=== PATIENT | female | born 1995 | race Caucasian/White ===

== ENCOUNTER 2018-09-03 18:08 | Emergency (ER) | payer OTHER ==
[~2018-09-03] VITALS: Ht 165.1 cm; Wt 129.3 kg
[2018-09-03 18:24] VITALS: BP 139/67
--- NOTE | 2018-09-03 19:23 | NUR ---
pt ambulated to bed 9.
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
--- NOTE | 2018-09-03 21:34 | NUR ---
PATIENT RESTING AT THIS TIME. NO SIGNS OF DISTRESS.
[2018-09-03] MEDS ORDERED: LIDOCAINE 1% 500 MG/50 ML VIAL MC SCH (22:15)
[2018-09-03 23:34] VITALS: BP 132/72
--- NOTE | 2018-09-03 23:34 | NUR ---
Patient discharged with v/s stable. Written and verbal after care instructions given and explained. Patient alert, oriented and verbalized understanding of instructions. Ambulatory with steady gait. All questions addressed prior to discharge. ID band removed. Patient advised to follow up with PMD. Rx of IBUPROFEN 800MG, BACTRIM 800MG-160M AND KEFLEX 500MG given. Patient educated on indication of medication including possible reaction and side effects. Opportunity to ask questions provided and answered.
== END 2018-09-03 23:34 | disposition home or self-care (01) ==
LOC: MED 18:08
DX: L02.213 Cutaneous abscess of chest wall (principal); Z88.6 Allergy status to analgesic agent; Z88.5 Allergy status to narcotic agent
CPT/HCPCS: 10060; 99283; J2001

== ENCOUNTER 2018-09-06 17:07 | Emergency (ER) | payer OTHER ==
[~2018-09-06] VITALS: Ht 167.6 cm; Wt 130.7 kg
[2018-09-06 17:15] VITALS: BP 131/70
--- NOTE | 2018-09-06 17:20 | NUR ---
PATIENT TO CHAIR Mi
--- NOTE | 2018-09-06 17:40 | NUR ---
PATIENT PRESENTS TO ED FOR F/U WOUND CHECK TO MID ANTERIOR CHEST WALL . PT STATES MINUTE AMOUNT OF DRAINAGE ONLY. DENIES N/V/D; SKIN IS PINK/WARM/DRY; AAOX4 WITH EVEN AND STEADY GAIT; LUNGS CLEAR BL; HR EVEN AND REGULAR; PT DENIES ANY FEVER, CP, SOB, OR COUGH AT THIS TIME; PATIENT STATES PAIN OF 0/10 AT THIS TIME; VSS; PATIENT POSITIONED FOR COMFORT; HOB ELEVATED; BEDRAILS UP X2; BED DOWN. ER MD MADE AWARE OF PT STATUS.
[2018-09-06 17:55] VITALS: BP 128/75
--- NOTE | 2018-09-06 17:55 | NUR ---
Patient discharged with v/s stable. Written and verbal after care instructions given and explained. Patient verbalized understanding. Ambulatory with steady gait. All questions addressed prior to discharge. Advised to follow up with PMD.
== END 2018-09-06 17:55 | disposition home or self-care (01) ==
LOC: MED 17:07
DX: J86.9 Pyothorax without fistula (principal); Z88.6 Allergy status to analgesic agent
CPT/HCPCS: 99281

== ENCOUNTER 2018-11-30 11:32 | Emergency (ER) | payer OTHER ==
[~2018-11-30] VITALS: Ht 167.6 cm; Wt 132.5 kg
[2018-11-30 11:45] VITALS: BP 114/59
--- NOTE | 2018-11-30 11:48 | NUR ---
TO LOBBY A/W BED, SHLOMO BENTLEY NOTED
--- NOTE | 2018-11-30 13:56 | NUR ---
PT AMBULATED TO BED 06.
[2018-11-30] MEDS ORDERED: KETOROLAC 60 MG/2 ML VIAL IM ONE (14:15)
--- NOTE | 2018-11-30 14:40 | NUR ---
PATIENT PRESENTS TO ED WITH C/O THROAT PAIN; MILD MUFFLED VOICE; NARE FLARE NO OTHER ACCESSORY MUSCLE USE NOTED--- DENIES N/V/D; SKIN IS PINK/WARM/DRY; AAOX4 WITH EVEN AND STEADY GAIT; LUNGS CLEAR BL; HR EVEN AND REGULAR; PT DENIES ANY FEVER, CP, SOB, OR COUGH AT THIS TIME; PATIENT STATES PAIN OF 8/10 AT THIS TIME; VSS; PATIENT POSITIONED FOR COMFORT; HOB ELEVATED; BEDRAILS UP X2; BED DOWN. ER MD MADE AWARE OF PT STATUS.
[2018-11-30 15:44] VITALS: BP 114/59
--- NOTE | 2018-11-30 15:44 | NUR ---
Patient discharged with v/s stable. Written and verbal after care instructions given and explained. Patient alert, oriented and verbalized understanding of instructions. Ambulatory with steady gait. All questions addressed prior to discharge. ID band removed. Patient advised to follow up with PMD. Rx of Voltaren XR 100mg given. Patient educated on indication of medication including possible reaction and side effects. Opportunity to ask questions provided and answered.
== END 2018-11-30 15:44 | disposition home or self-care (01) ==
LOC: MED 11:32
DX: S63.502A Unspecified sprain of left wrist, initial encounter (principal); Z88.6 Allergy status to analgesic agent; Z88.5 Allergy status to narcotic agent; X50.0XXA Overexertion from strenuous movement or load, initial encounter; Y93.89 Activity, other specified; Y92.59 Other trade areas as the place of occurrence of the external cause; Y99.0 Civilian activity done for income or pay
CPT/HCPCS: 29125; 73110; 96372; 99283; J1885; Q0092

== ENCOUNTER 2021-04-24 17:24 | Emergency (ER) | payer OTHER ==
[~2021-04-24] VITALS: Ht 167.6 cm; Wt 125.6 kg
[2021-04-24 17:28] VITALS: BP 123/69
--- NOTE | 2021-04-24 17:35 | NUR ---
PT AMBULATED TO BED 11 WITH STEADY GAIT
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
--- NOTE | 2021-04-24 17:39 | NUR ---
MONICA RAMIREZ AT BEDSIDE EVALUATING PT
[2021-04-24] MEDS ORDERED: KETOROLAC 30 MG/ML VIAL IM ONE (17:40)
--- NOTE | 2021-04-24 17:48 | NUR ---
Patient ambulated to the restroom with a steady gait.
--- NOTE | 2021-04-24 18:04 | NUR ---
PT TAKEN TO RAD VIA W/C
--- NOTE | 2021-04-24 18:10 | NUR ---
PT BACK FROM RAD
[2021-04-24] MEDS ORDERED: NAPR-1704 PO (18:27)
[2021-04-24] MEDS ORDERED: CEPH-588 PO (18:27)
[2021-04-24 18:50] VITALS: BP 123/69
--- NOTE | 2021-04-24 18:51 | NUR ---
Patient discharged with v/s stable. Written and verbal after care instructions ABOUT MEDICATION, UTI AND LOW BACK SPRAIN/STRAIN REHAB given and explained. Patient alert, oriented and verbalized understanding of instructions. Ambulatory with steady gait. All questions addressed prior to discharge. ID band removed. Patient advised to follow up with PMD. Rx of CEPHALEXIN AND NAPROXEN given. Patient educated on indication of medication including possible reaction and side effects. Opportunity to ask questions provided and answered.
== END 2021-04-24 18:51 | disposition home or self-care (01) ==
LOC: MED 17:24
DX: S39.012A Strain of muscle, fascia and tendon of lower back, initial encounter (principal); N39.0 Urinary tract infection, site not specified; Z79.1 Long term (current) use of non-steroidal anti-inflammatories (NSAID); Z79.2 Long term (current) use of antibiotics; Z88.5 Allergy status to narcotic agent; Z88.6 Allergy status to analgesic agent; V89.2XXA Person injured in unspecified motor-vehicle accident, traffic, initial encounter; Y93.89 Activity, other specified; Y92.410 Unspecified street and highway as the place of occurrence of the external cause; Y99.8 Other external cause status
CPT/HCPCS: 72100; 81002; 81025; 96372; 99283; J1885

== ENCOUNTER 2022-04-11 19:37 | Emergency (ER) | payer OTHER ==
[~2022-04-11] VITALS: Ht 167.6 cm; Wt 118.4 kg
[~2022-04-11 19:37] MED LIST: CEPH-588 PO; NAPR-1704 PO
[2022-04-11 19:40] VITALS: BP 123/61
--- NOTE | 2022-04-11 19:43 | NUR ---
TO LOBBY A/W BED AMBULATORY
--- NOTE | 2022-04-11 20:33 | NUR ---
SEEN AND EXAMINED BY DOV , WITH ORDERS AND CARRIED OUT.
[2022-04-11] MEDS ORDERED: METOCLOPRAMIDE 10 MG TAB PO ONE (20:45)
[2022-04-11] MEDS ORDERED: ONDANSETRON 4 MG ODT PO ONE (20:45)
--- NOTE | 2022-04-11 21:05 | NUR ---
PT AMBULATED TO BED #5
--- NOTE | 2022-04-11 21:10 | NUR ---
ULTRASOUND AT BEDSIDE
[2022-04-11 21:21] LABS: BILIRUBIN,URINE NEGATIVE (NEGATIVE); BLOOD, URINE NEGATIVE (NEGATIVE); COLOR,URINE YELLOW (YELLOW); LEUKOCYTE ESTERASE ,URINE 1+ (NEGATIVE); NITRITE, URINE NEGATIVE (NEGATIVE); UGLUCOSE NEGATIVE (NEGATIVE)
[2022-04-11 21:22] LABS: BASOPHILS # (AUTO) 0.1 K/uL (0.00-0.22); BASOPHILS % (AUTO) 0.6 % (0.0-2.0); EOSINOPHILS # (AUTO) 0.1 K/uL (0-0.4); HEMOGLOBIN 13.5 g/dL (12.0-16.0); LYMPHOCYTES # (AUTO) 2.5 K/uL (2.5-16.5); LYMPHOCYTES % (AUTO) 23.1 % (20.5-51.1); MEAN CORPUSCULAR HEMOGLOBIN 29 pg (27-31); MEAN CORPUSCULAR HGB CONC 33 g/dL (33-37); MEAN CORPUSCULAR VOLUME 87.3 fL (80-94); MONOCYTES # (AUTO) 0.7 K/uL (0.8-1.0); MONOCYTES % (AUTO) 6.2 % (1.7-9.3); NEUTROPHILS # (AUTO) 7.4 K/uL (1.8-7.7); NEUTROPHILS % (AUTO) 69.1 % (42.2-75.2); PLATELET COUNT (AUTO) 289 K/uL (140-450); RED BLOOD CELL COUNT(AUTO) 4.69 MIL/uL (4.20-5.40); RED CELL DISTRIBUTION WIDTH 14.1 % (11.6-13.7); WHITE BLOOD COUNT (AUTO) 10.7 K/uL (4.8-10.8)
[2022-04-11 21:30] LABS: APPEARANCE,URINE HAZY (CLEAR)
[2022-04-11 21:33] LABS: RBC,URINE NONE SEEN /HPF (0-5)
[2022-04-11 21:42] LABS: ANION GAP 10.6 (8-16); CARBON DIOXIDE 25.1 mmol/L (21-32); CREATININE 0.7 mg/dL (0.6-1.3); POTASSIUM 3.7 mmol/L (3.5-5.1); TOTAL BILIRUBIN 0.5 mg/dL (0.0-1.0)
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
--- NOTE | 2022-04-11 22:05 | NUR ---
S/O AMBULATED TO ROOM 5 .
[2022-04-11] MEDS ORDERED: CEPH250C16 PO (22:08)
[2022-04-11] MEDS ORDERED: DOXY25TA61 PO (22:08)
[2022-04-11] MEDS ORDERED: ONDA-188 SL (22:08)
[2022-04-11] MEDS ORDERED: PNV91TAB10 PO (22:08)
[2022-04-11] MEDS ORDERED: PYRI-218 PO (22:08)
[2022-04-11 23:21] VITALS: BP 100/35
--- NOTE | 2022-04-11 23:21 | NUR ---
Patient discharged with v/s stable. Written and verbal after care instructions given and explained. Patient alert, oriented and verbalized understanding of instructions. Ambulatory with steady gait. All questions addressed prior to discharge. ID band removed. Patient advised to follow up with PMD. Rx of GERALD CONTRERAST. CEPHALEXIN, UNISOM, , VITAMIN B-6 given. Opportunity to ask questions provided and answered.
--- NOTE | 2022-04-12 00:09 | NUR ---
The patient's care was reviewed and supervised by Ena Riddle RN.
== END 2022-04-11 23:21 | disposition home or self-care (01) ==
LOC: MED 19:37
DX: O23.91 Unspecified genitourinary tract infection in pregnancy, first trimester (principal); R82.71 Bacteriuria; Z3A.01 Less than 8 weeks gestation of pregnancy; Z79.899 Other long term (current) drug therapy; Z79.2 Long term (current) use of antibiotics; Z79.1 Long term (current) use of non-steroidal anti-inflammatories (NSAID); Z88.5 Allergy status to narcotic agent; Z88.6 Allergy status to analgesic agent
CPT/HCPCS: 36415; 76817; 80053; 81001; 81025; 83690; 84702; 85025; 87086; 99285; J8597; Q0092; Q0162

== ENCOUNTER 2022-05-05 04:00 | Emergency (ER) | payer OTHER ==
[~2022-05-05] VITALS: Ht 165.1 cm; Wt 127.0 kg
[~2022-05-05 04:00] MED LIST changes: +CEPH250C16 PO; +DOXY25TA61 PO; +ONDA-188 SL; +PNV91TAB10 PO; +PYRI-218 PO
[2022-05-05 04:40] VITALS: BP 137/66
[2022-05-05 05:03] LABS: APPEARANCE,URINE SL CLOUDY (CLEAR); BILIRUBIN,URINE NEGATIVE (NEGATIVE); BLOOD, URINE NEGATIVE (NEGATIVE); COLOR,URINE YELLOW (YELLOW); LEUKOCYTE ESTERASE ,URINE 2+ (NEGATIVE); NITRITE, URINE NEGATIVE (NEGATIVE); UGLUCOSE NEGATIVE (NEGATIVE)
[2022-05-05 05:17] LABS: RBC,URINE 0-5 /HPF (0-5); WBC,URINE 16-25 (MOD) /HPF (0-5)
[2022-05-05 05:53] LABS: BASOPHILS # (AUTO) 0.1 K/uL (0.00-0.22); BASOPHILS % (AUTO) 0.9 % (0.0-2.0); EOSINOPHILS # (AUTO) 0.1 K/uL (0-0.4); HEMATOCRIT 37.5 % (36-48); HEMOGLOBIN 12.5 g/dL (12.0-16.0); LYMPHOCYTES % (AUTO) 22.7 % (20.5-51.1); MEAN CORPUSCULAR HEMOGLOBIN 29 pg (27-31); MEAN CORPUSCULAR HGB CONC 33 g/dL (33-37); MEAN CORPUSCULAR VOLUME 87.8 fL (80-94); MONOCYTES # (AUTO) 0.6 K/uL (0.8-1.0); MONOCYTES % (AUTO) 7.1 % (1.7-9.3); NEUTROPHILS # (AUTO) 5.9 K/uL (1.8-7.7); NEUTROPHILS % (AUTO) 68.3 % (42.2-75.2); PLATELET COUNT (AUTO) 230 K/uL (140-450); RED BLOOD CELL COUNT(AUTO) 4.27 MIL/uL (4.20-5.40); RED CELL DISTRIBUTION WIDTH 14.2 % (11.6-13.7); WHITE BLOOD COUNT (AUTO) 8.6 K/uL (4.8-10.8)
[2022-05-05] MEDS ORDERED: cefTRIAXone 1,000 MG in LIDOCAINE MPF 1% 2.1 ML IM ONE (05:55)
[2022-05-05 06:23] LABS: ALBUMIN 3.4 g/dL (3.4-5.0); ANION GAP 10.1 (8-16); CARBON DIOXIDE 25.8 mmol/L (21-32); CREATININE 0.6 mg/dL (0.6-1.3); POTASSIUM 3.9 mmol/L (3.5-5.1); TOTAL BILIRUBIN 0.3 mg/dL (0.0-1.0)
[2022-05-05] MEDS ORDERED: cefTRIAXone 1,000 MG VIAL ONE (06:40)
[2022-05-05] MEDS ORDERED: LIDOCAINE MPF 1% 5 ML ONE (06:40)
[2022-05-05] MEDS ORDERED: NITR100C7 PO (08:04)
[2022-05-05 08:12] VITALS: BP 137/66
== END 2022-05-05 08:13 | disposition home or self-care (01) ==
LOC: MED 04:00
DX: O20.0 Threatened abortion (principal); N39.0 Urinary tract infection, site not specified; Z3A.09 9 weeks gestation of pregnancy; Z88.6 Allergy status to analgesic agent; Z79.891 Long term (current) use of opiate analgesic; Z90.49 Acquired absence of other specified parts of digestive tract
CPT/HCPCS: 36415; 76802; 80053; 81001; 81025; 83690; 84702; 85025; 87086; 96372; 99284; J0696; J2001; Q0092

== ENCOUNTER 2022-06-07 16:04 | Emergency (ER) | payer OTHER ==
[~2022-06-07] VITALS: Ht 165.1 cm; Wt 135.2 kg
[~2022-06-07 16:04] MED LIST changes: +NITR100C7 PO
[2022-06-07 16:11] VITALS: BP 125/98
--- NOTE | 2022-06-07 16:45 | NUR ---
STOOD IN Female Etiquette Coach FOR DR. MUNSON, accompanied female patient for Pelvic Exam.
[2022-06-07 16:52] LABS: BASOPHILS # (AUTO) 0.1 K/uL (0.00-0.22); BASOPHILS % (AUTO) 0.8 % (0.0-2.0); EOSINOPHILS # (AUTO) 0.1 K/uL (0-0.4); EOSINOPHILS % (AUTO) 0.8 % (0.0-4.0); HEMATOCRIT 40.3 % (36-48); HEMOGLOBIN 13.3 g/dL (12.0-16.0); LYMPHOCYTES # (AUTO) 2.6 K/uL (2.5-16.5); LYMPHOCYTES % (AUTO) 17.2 % (20.5-51.1); MEAN CORPUSCULAR HEMOGLOBIN 29 pg (27-31); MEAN CORPUSCULAR HGB CONC 33 g/dL (33-37); MEAN CORPUSCULAR VOLUME 86.6 fL (80-94); MONOCYTES # (AUTO) 0.8 K/uL (0.8-1.0); MONOCYTES % (AUTO) 5.1 % (1.7-9.3); NEUTROPHILS # (AUTO) 11.3 K/uL (1.8-7.7); NEUTROPHILS % (AUTO) 76.1 % (42.2-75.2); PLATELET COUNT (AUTO) 302 K/uL (140-450); RED BLOOD CELL COUNT(AUTO) 4.66 MIL/uL (4.20-5.40); RED CELL DISTRIBUTION WIDTH 13.9 % (11.6-13.7); WHITE BLOOD COUNT (AUTO) 14.8 K/uL (4.8-10.8)
--- NOTE | 2022-06-07 16:55 | NUR ---
Ultrasound at bedside.
--- NOTE | 2022-06-07 17:15 | NUR ---
PATIENT BLOOD PRESSURE 87/35, DR. MUNOSN MADE AWARE.
--- NOTE | 2022-06-07 17:15 | NUR ---
SPECIMEN S/P PELVIC PROCEDURE WALKED TO LAB
--- NOTE | 2022-06-07 17:30 | NUR ---
26/F BIBA FROM HOME. PER EMS PATIENT CALLED 911 C/O HEAVY VAGINAL BLEEDING TODAY. PATIENT REPORTS SHE IS ABOUT 13 WEEKS , STATING SHE BEGAN SPOTTING TWO DAYS AGO AND TODAY GOT MUCH HEAVIER ALONG WITH 8/10 LOWER ABDOMINAL CRAMPING. PATIENT DENIES N/V/D, DIZZINESS, HEADACHE OR VISION CHANGES. PATIENT REPORTS SATURATING TWO PADS PRIOR TO ARRIVAL, PATIENT IS A0.
[2022-06-07] MEDS ORDERED: NACL 0.9% 1,000 ML IV ONE (18:05)
[2022-06-07 19:06] LABS: BASOPHILS # (AUTO) 0.1 K/uL (0.00-0.22); BASOPHILS % (AUTO) 0.4 % (0.0-2.0); EOSINOPHILS % (AUTO) 0.3 % (0.0-4.0); HEMOGLOBIN 11.8 g/dL (12.0-16.0); LYMPHOCYTES # (AUTO) 1.7 K/uL (2.5-16.5); LYMPHOCYTES % (AUTO) 11.6 % (20.5-51.1); MEAN CORPUSCULAR HEMOGLOBIN 29 pg (27-31); MEAN CORPUSCULAR HGB CONC 33 g/dL (33-37); MEAN CORPUSCULAR VOLUME 87.8 fL (80-94); MONOCYTES # (AUTO) 0.7 K/uL (0.8-1.0); MONOCYTES % (AUTO) 4.5 % (1.7-9.3); NEUTROPHILS # (AUTO) 12.2 K/uL (1.8-7.7); NEUTROPHILS % (AUTO) 83.2 % (42.2-75.2); PLATELET COUNT (AUTO) 254 K/uL (140-450); RED CELL DISTRIBUTION WIDTH 13.7 % (11.6-13.7); WHITE BLOOD COUNT (AUTO) 14.7 K/uL (4.8-10.8)
[2022-06-07] MEDS ORDERED: NAPR-1704 PO (19:31)
--- NOTE | 2022-06-07 19:33 | NUR ---
Pt report given to TAMERA HUNT. Transfer of care at this time.
[2022-06-07 19:37] LABS: ALBUMIN 3.4 g/dL (3.4-5.0); ANION GAP 11.8 (8-16); CARBON DIOXIDE 23.2 mmol/L (21-32); CREATININE 0.7 mg/dL (0.6-1.3); TOTAL BILIRUBIN 0.2 mg/dL (0.0-1.0)
[2022-06-07 20:19] VITALS: BP 124/64
[2022-06-07 23:40] LABS: APPEARANCE,URINE CLEAR (CLEAR); BILIRUBIN,URINE NEGATIVE (NEGATIVE); BLOOD, URINE 3+ (NEGATIVE); COLOR,URINE YELLOW (YELLOW); LEUKOCYTE ESTERASE ,URINE 2+ (NEGATIVE); NITRITE, URINE POSITIVE (NEGATIVE); UGLUCOSE TRACE (NEGATIVE)
[2022-06-08 00:27] LABS: RBC,URINE TOO NUMEROUS TO COUN /HPF (0-5); TRICHOMONAS,URINE None Seen /HPF (None Seen); WBC,URINE TOO MANY TO COUNT /HPF (0-5); YEAST,URINE Rare /HPF (None Seen)
[2022-06-08 00:28] LABS: CALCIUM OXALATE CRYSTALS,UR None Seen /HPF (None Seen)
== END 2022-06-07 19:50 | disposition home or self-care (01) ==
LOC: MED 16:04
DX: O03.9 Complete or unspecified spontaneous abortion without complication (principal); O99.011 Anemia complicating pregnancy, first trimester; Z90.49 Acquired absence of other specified parts of digestive tract; Z79.899 Other long term (current) drug therapy; Z88.5 Allergy status to narcotic agent; Z88.6 Allergy status to analgesic agent; Z3A.13 13 weeks gestation of pregnancy
CPT/HCPCS: 36415; 76817; 80053; 81001; 81025; 84702; 85025; 86900; 86901; 87086; 93005; 96360; 99285; J7030; Q0092; 88305

== ENCOUNTER 2023-09-24 08:39 | Emergency (ER) | payer OTHER ==
[~2023-09-24] VITALS: Ht 167.6 cm; Wt 144.8 kg
[2023-09-24 08:43] VITALS: BP 117/51; PULSE 108; RESP 20; TEMP 97.8; O2SAT 99
[2023-09-24 09:24] LABS: BASOPHILS % (AUTO) 0.4 % (0.0-2.0); EOSINOPHILS # (AUTO) 0.1 K/uL (0-0.4); EOSINOPHILS % (AUTO) 0.6 % (0.0-4.0); HEMATOCRIT 43.5 % (36-48); HEMOGLOBIN 14.5 g/dL (12.0-16.0); LYMPHOCYTES # (AUTO) 1.3 K/uL (2.5-16.5); LYMPHOCYTES % (AUTO) 14.3 % (20.5-51.1); MEAN CORPUSCULAR HEMOGLOBIN 28 pg (27-31); MEAN CORPUSCULAR HGB CONC 33 g/dL (33-37); MEAN CORPUSCULAR VOLUME 84.8 fL (80-94); MONOCYTES # (AUTO) 0.7 K/uL (0.8-1.0); MONOCYTES % (AUTO) 7.7 % (1.7-9.3); NEUTROPHILS # (AUTO) 6.9 K/uL (1.8-7.7); PLATELET COUNT (AUTO) 294 K/uL (140-450); RED BLOOD CELL COUNT(AUTO) 5.13 MIL/uL (4.20-5.40); WHITE BLOOD COUNT (AUTO) 8.9 K/uL (4.8-10.8)
[2023-09-24] MEDS ORDERED: ONDANSETRON 4 MG/2 ML VIAL IVP ONE (09:35)
[2023-09-24] MEDS ORDERED: ALUMINUM HYD/MAG/SIMETHICONE 30 ML UDC PO ONE (09:35)
[2023-09-24] MEDS ORDERED: KETOROLAC 30 MG/ML VIAL IVP ONE (09:35)
[2023-09-24] MEDS ORDERED: NACL 0.9% 1,000 ML IV ONE (09:35)
[2023-09-24 09:47] LABS: CARBON DIOXIDE 24.7 mmol/L (21-32); CREATININE 0.9 mg/dL (0.6-1.3); POTASSIUM 3.7 mmol/L (3.5-5.1)
[2023-09-24 09:51] LABS: ALBUMIN 3.5 g/dL (3.4-5.0); BILIRUBIN,DIRECT 0.2 mg/dL (0.0-0.3); TOTAL BILIRUBIN 0.7 mg/dL (0.0-1.0); TOTAL PROTEIN, SERUM 7.6 g/dL (6.4-8.2)
[2023-09-24 10:27] LABS: APPEARANCE,URINE CLEAR (CLEAR); BILIRUBIN,URINE NEGATIVE (NEGATIVE); BLOOD, URINE TRACE-I (NEGATIVE); COLOR,URINE YELLOW (YELLOW); LEUKOCYTE ESTERASE ,URINE TRACE (NEGATIVE); NITRITE, URINE NEGATIVE (NEGATIVE); PROTEIN,URINE TRACE (NEGATIVE); UGLUCOSE NEGATIVE (NEGATIVE)
[2023-09-24] MEDS ORDERED: ACET-10509 PO (12:11)
[2023-09-24] MEDS ORDERED: ONDA-188 PO (12:11)
[2023-09-24] MEDS ORDERED: BEN10 PO (12:11)
[2023-09-24 12:22] VITALS: BP 123/57; PULSE 82; RESP 18; TEMP 99.1; O2SAT 99
== END 2023-09-24 12:22 | disposition home or self-care (01) ==
LOC: MED 08:39
DX: A08.4 Viral intestinal infection, unspecified (principal); Z88.5 Allergy status to narcotic agent; Z88.8 Allergy status to other drugs, medicaments and biological substances; Z79.899 Other long term (current) drug therapy
CPT/HCPCS: 36415; 80048; 80076; 81003; 81025; 83690; 85025; 96361; 96374; 96375; 99284; J1885; J2405; J7030

== ENCOUNTER 2023-11-21 11:26 | Emergency (ER) | payer OTHER ==
[~2023-11-21] VITALS: Ht 165.1 cm; Wt 136.1 kg
[~2023-11-21 11:26] MED LIST changes: +ACET-10509 PO; +BEN10 PO; +ONDA-188 PO
[2023-11-21 11:32] VITALS: BP 123/65; PULSE 88; RESP 18; TEMP 96.8; O2SAT 98
[2023-11-21 12:29] LABS: BASOPHILS # (AUTO) 0.1 K/uL (0.00-0.22); BASOPHILS % (AUTO) 0.9 % (0.0-2.0); EOSINOPHILS # (AUTO) 0.2 K/uL (0-0.4); EOSINOPHILS % (AUTO) 2.4 % (0.0-4.0); HEMATOCRIT 39.3 % (36-48); HEMOGLOBIN 13.3 g/dL (12.0-16.0); LYMPHOCYTES # (AUTO) 2.5 K/uL (2.5-16.5); LYMPHOCYTES % (AUTO) 28.7 % (20.5-51.1); MEAN CORPUSCULAR HEMOGLOBIN 29 pg (27-31); MEAN CORPUSCULAR HGB CONC 34 g/dL (33-37); MEAN CORPUSCULAR VOLUME 85.4 fL (80-94); MONOCYTES # (AUTO) 0.5 K/uL (0.8-1.0); MONOCYTES % (AUTO) 5.3 % (1.7-9.3); NEUTROPHILS # (AUTO) 5.5 K/uL (1.8-7.7); NEUTROPHILS % (AUTO) 62.7 % (42.2-75.2); PLATELET COUNT (AUTO) 295 K/uL (140-450); RED CELL DISTRIBUTION WIDTH 14.4 % (11.6-13.7); WHITE BLOOD COUNT (AUTO) 8.8 K/uL (4.8-10.8)
[2023-11-21 12:30] LABS: APPEARANCE,URINE CLEAR (CLEAR); BILIRUBIN,URINE NEGATIVE (NEGATIVE); BLOOD, URINE 3+ (NEGATIVE); COLOR,URINE YELLOW (YELLOW); LEUKOCYTE ESTERASE ,URINE TRACE (NEGATIVE); NITRITE, URINE POSITIVE (NEGATIVE); PROTEIN,URINE 1+ (NEGATIVE); UGLUCOSE NEGATIVE (NEGATIVE); UROBILINOGEN,URINE 0.2 EU/dL (0.2 - 1)
[2023-11-21 12:52] LABS: ANION GAP 10.6 (8-16); CALCIUM 8.6 mg/dL (8.5-10.1); CARBON DIOXIDE 26.2 mmol/L (21-32); CREATININE 0.8 mg/dL (0.6-1.3); POTASSIUM 3.8 mmol/L (3.5-5.1); TOTAL BILIRUBIN 0.3 mg/dL (0.0-1.0); TOTAL PROTEIN, SERUM 7.8 g/dL (6.4-8.2)
[2023-11-21 13:00] LABS: BACTERIA,URINE 10-30 (MOD) /HPF (None Seen); RBC,URINE 20-50 /HPF (0-5)
[2023-11-21 13:01] LABS: MUCUS,URINE None Seen /LPF (None Seen); SQUAMOUS EPITHELIAL CELL,UR 4-10 (MOD) /LPF (0-3 (FEW)); TRICHOMONAS,URINE None Seen /HPF (None Seen); WHITE BLOOD CELL CASTS,URINE None Seen /LPF (None Seen); YEAST,URINE None Seen /HPF (None Seen)
[2023-11-21] MEDS ORDERED: CEPH-588 PO (13:06)
[2023-11-21 13:30] VITALS: BP 123/65; PULSE 88; RESP 18; TEMP 96.8; O2SAT 98
== END 2023-11-21 13:32 | disposition home or self-care (01) ==
LOC: MED 11:26
DX: N93.9 Abnormal uterine and vaginal bleeding, unspecified (principal); Z79.899 Other long term (current) drug therapy
CPT/HCPCS: 36415; 80053; 81001; 81025; 83690; 85025; 87086; 99284